=== PATIENT | male | born 1960 | race Caucasian/White ===

== ENCOUNTER 2016-11-26 15:50 | Emergency (ER) | payer OTHER ==
[~2016-11-26] VITALS: Ht 177.8 cm; Wt 72.6 kg
[2016-11-26 15:54] VITALS: BP 111/83
[2016-11-26] MEDS ORDERED: WELLBUTRIN 75 M75 M1 PO (16:06)
[2016-11-26] MEDS ORDERED: NORCO 10-325 T1 EAC1 PO (16:06)
[2016-11-26] MEDS ORDERED: ACCUNEB SO1.25 MG/1 INH (16:06)
[2016-11-26] MEDS ORDERED: FLEXERIL PO (16:30)
[2016-11-26] MEDS ORDERED: MOBIC15 MG PO (16:30)
== END 2016-11-26 16:54 | disposition home or self-care (01) ==
LOC: ER 15:50
DX: M54.31 Sciatica, right side (principal); F17.210 Nicotine dependence, cigarettes, uncomplicated; F10.99 Alcohol use, unspecified with unspecified alcohol-induced disorder; Z85.47 Personal history of malignant neoplasm of testis

== ENCOUNTER 2017-09-02 12:56 | Inpatient (IN) | payer OTHER ==
[~2017-09-02] VITALS: Ht 170.2 cm; Wt 74.8 kg
--- NOTE | ~2017-09-02 | HC ---
[facility] [place] [address] CONSULTATION Name: DAISY CORTES Room #: 454-P [facility]#: [id number] Admission: 09/02/17 Attend Phys: Reno Banegas MD Discharge: 09/05/17 Date of : 64 Report #: [id number] THIS REPORT FOR: //name// CC: MELLO physician/PCP Reno Banegas DATE OF SERVICE: 09/03/2017 HISTORY OF PRESENT ILLNESS: This is a 56-year-old male patient who was evaluated by me because he had a seizure. He gives a history that he had seizures for some time. He estimates it is going on for a few years. He is homeless, history is not very well defined, but he indicates that he gets seizure about couple of times a month. Some of them had been grand mal seizure. He said one time his friend checked his blood sugar and it was 37, but that was not during the seizure. This started spontaneously without any trauma. They come and go. He does not know what brought them on and what makes them better. REVIEW OF SYSTEMS: Indicate that he does drink alcohol, but he says he drinks only about 2 beers a day. He does have some back pain. He does have some psychiatric issue. He does have some GI symptoms. His liver function has been elevated. Rest of the 14-point review of system was mostly noncontributory. PAST MEDICAL HISTORY: Positive for seizure and psychiatric problem. FAMILY HISTORY: Negative for early age for seizures. SOCIAL HISTORY: He does drink alcohol, but he says he drinks about 2 beers and sometime he drinks more than that. He does smoke. PHYSICAL EXAMINATION: Indicate he is alert and responsive. He can follow simple and complex command. His speech, concentration, fund of knowledge and memory is at his baseline. Cranial nerve examination 2-12 looks unremarkable. He has symmetrical strength, sensation, reflexes and tone in all 4 extremities. There is no cerebellar sign. There is no papilledema. He is able to ambulate with reasonable stability. He is a well-developed individual who does not have any dysmorphic features of eyes, ears and face. Hearing and vision looks adequate. He has no thyroid mass. His pulses are palpable and he has no edema, cyanosis or jaundice. Cardiac examination is unremarkable. Respiratory examination showed no respiratory difficulty or rhonchi on either side. PHYSICAL EXAMINATION: VITAL SIGNS: Blood pressure is 156/71, respirations 19, pulse is 61, temperature is 98.4. LABORATORY DATA: Indicate a white count of 5.9. He had a CT scan. We ordered an MRI. [address] [address] CONSULTATION Name: DAISY CORTES Room #: 454-P [facility]#: [id number] Admission: 09/02/17 Attend Phys: Reno Banegas MD Discharge: 09/05/17 Date of : 64 Report #: [id number] IMPRESSION: This patient presents with a history of seizure. I am not sure how accurate his history is of blood sugar of 37. I think neurologically, he does need workup with an MRI and an EEG. He does drink alcohol and his liver functions are abnormal, but he denies drinking more than 2 alcoholic drinks a day, but history is not reliable. I will not put him on any anticonvulsant at the moment, but await the workup. I will defer to you for systemic workup especially with his history of blood sugar of 37, which I am not totally convinced of a history of blood sugar of 37. RECOMMENDATIONS: 1. Seizure precautions. 2. He can drive. 3. I discussed all of it with the patient. 4. Await the workup and then decide about treatment because he says he cannot afford treatment or the medication. Thank you very much for this referral. <ELECTRONICALLY SIGNED> By: Roge Anderson MD 09/06/17 0943 01 0023 Roge Anderson MD /nt
--- NOTE | ~2017-09-02 | EEG ---
[facility] [place] [address] ELECTROENCEPHALOGRAM Name: DAISY CORTES Room #: 454-P [facility] IN ..#: [id number] Admission: 09/02/17 Attend Phys: Reno Banegas MD Discharge: 09/05/17 Date of : 64 Report #: [id number] THIS REPORT FOR: //name// CC: MELLO physician/PCP Reno Banegas DATE OF SERVICE: 09/04/2017 This patient is being evaluated for what he described as seizure. EEG was repeated today because he said he had another seizure. EEG was done by placing the electrodes by standard 10-20 system of electrode placement. Both referential and sequential montages were used for recording. Background activity in this patient's EEG is about 11 Hz and 40 microvolts. This is a symmetrical activity. The patient went to sleep that is associated with bilaterally symmetrical sleep spindle and vertex sharp waves. Throughout the record, no active epileptiform activity was noticed. IMPRESSION: This patient's EEG is within normal limits. No slowing was noticed in the EEG, which was done immediately after the patient had his episode. It would be very unusual for epileptiform seizures to cause no slowing or no abnormality, just after the seizures, although possible. Thank you very much for this referral. <ELECTRONICALLY SIGNED> By: Roge Anderson MD 09/06/17 0943 1458 1843 MD [place]
--- NOTE | ~2017-09-02 | EEG ---
[facility] [address] [address] ELECTROENCEPHALOGRAM Name: SEBASTIANDAISY Darlene Room #: 454-P [facility] IN .R.#: [id number] Admission: 09/02/17 Attend Phys: Reno Banegas MD Discharge: 09/05/17 Date of : 64 Report #: [id number] THIS REPORT FOR: //name// CC: MELLO physician/PCP Reno Banegas DATE OF SERVICE: 09/03/2017 This patient is being evaluated for the possibility of seizure. EEG was done by placing the electrodes by standard 10-20 system of electrode placement. Both referential and sequential montages were used for recording. Background activity in this patient's EEG is about 11 Hz and 40 microvolts. It is a symmetrical activity. The patient became drowsy that is associated with bilateral slowing and vertex sharp waves. Photic stimulation is unremarkable. Throughout the record, no active epileptiform activity was noticed. IMPRESSION: This patient's EEG is within normal limit. Thank you very much for this referral. <ELECTRONICALLY SIGNED> By: Roge Anderson MD 09/06/17 0943 0830 1623 Roge Anderson MD /nt
--- NOTE | ~2017-09-02 | EKG ---
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: [facility] : 1960 Requested By: Jolanta Romano Order Number: [id number] MD: Juan Ramon Rawls Measurements Intervals [place] Rate: 77 P: 51 CA: 161 QRS: 64 QRSD: 83 T: 61 QT: 371 QTc: 420 Interpretive Statements Sinus rhythm Normal tracing No previous ECG available for comparison Electronically Signed On 09-02-2017 17:21:33 CDT by Juan Ramon Rawls [email or web address] <ELECTRONICALLY SIGNED> By: Juan Ramon Rawls MD, [facility] 09/02/17 1721 1324 1324 Juan Ramon Rawls MD, FAC /EPI
[~2017-09-02 12:56] MED LIST: ACCUNEB SO1.25 MG/1 INH; FLEXERIL PO; MOBIC15 MG PO; NORCO 10-325 T1 EAC1 PO; WELLBUTRIN 75 M75 M1 PO
[2017-09-02 12:57] VITALS: BP 145/73
[2017-09-02 13:26] LABS: BASOPHILS 1.1 % (0.0-2.0); EOSINOPHILS 7.7 % (0.0-3.0); HEMOGLOBIN 14.3 gm/dL (14.0-18.0); LYMPHOCYTES 31.7 % (24.0-44.0); MCH 32.9 pg (26.0-34.0); MCHC 35.7 g/dL (28.0-37.0); MCV 92.2 fL (80.0-100.0); MONOCYTES 7.9 % (1.0-8.0); PLATELET COUNT 268 thou/uL (150-400); POLYS 51.6 % (36.0-66.0); RBC 4.34 mil/uL (4.50-6.00); RDW 13.6 % (10.5-14.5); WBC 5.9 thou/uL (4.0-11.0)
[2017-09-02 13:36] LABS: ANION GAP 9 mmol/L (7-16); BUN 16 mg/dL (7-18); CALCIUM 8.6 mg/dL (8.5-10.1); CHLORIDE 108 mmol/L (98-107); CO2 26 mmol/L (21-32); CREATININE 0.9 mg/dL (0.7-1.3); GLUCOSE 94 mg/dL (74-106); POTASSIUM 3.9 mmol/L (3.5-5.1); SODIUM 143 mmol/L (136-145)
[2017-09-02 13:44] LABS: ALBUMIN 3.4 g/dL (3.4-5.0); SGOT 55 U/L (15-37); SGPT 73 U/L (30-65); TOTAL BILIRUBIN 0.2 mg/dL (<0.1-1.0); TOTAL PROTEIN 6.9 g/dL (6.4-8.2); TROPONIN-I <0.06 ng/mL (<0.06)
[2017-09-02 14:23] LABS: URINE BILIRUBIN NEGATIVE (Negative); URINE BLOOD NEGATIVE (Negative); URINE CLARITY CLEAR; URINE COLOR YELLOW; URINE GLUCOSE-RANDOM* NEGATIVE (Negative); URINE KETONES NEGATIVE (Negative); URINE LEUKOCYTES-REFLEX NEGATIVE (Negative); URINE NITRITE-REFLEX NEGATIVE (Negative); URINE PROTEIN (DIPSTICK) NEGATIVE (Negative); URINE SPECIFIC GRAVITY >= 1.030 (1.005-1.035); URINE UROBILINOGEN 0.2 E.U./dl (0.2-1.0)
[2017-09-02] MEDS ORDERED: PERCOCET 10-321 EACH PO (14:33)
[2017-09-02 16:03] VITALS: BP 132/76
[2017-09-02 16:26] LABS: CHOLESTEROL 170 mg/dL (<200); HDL CHOLESTEROL 77 mg/dL (>40); LDL CHOLESTEROL 67 mg/dL (<100); TC:HDL 2.2 Ratio (Not establshd); TRIGLYCERIDE 130 mg/dL (<150); VLDL 26 mg/dL (<40)
[2017-09-02 16:27] LABS: SERUM ASSESSMENT Clear
[2017-09-02 16:50] VITALS: BP 156/98
[2017-09-02 16:52] LABS: FOLIC ACID 6.3 ng/mL (8.6-58.9); TSH 0.942 uIU/mL (0.358-3.740)
[2017-09-02 17:00] VITALS: BP 147/83
[2017-09-02 20:04] VITALS: BP 156/98
[2017-09-03 00:14] VITALS: BP 161/95
[2017-09-03 04:24] VITALS: BP 161/87
[2017-09-03 07:35] VITALS: BP 156/76
[2017-09-03 16:30] VITALS: BP 156/71
[2017-09-03 22:17] VITALS: BP 146/93
[2017-09-04 04:34] LABS: HEMATOCRIT 41.9 % (42.0-52.0); HEMOGLOBIN 14.3 gm/dL (14.0-18.0); MCH 32.4 pg (26.0-34.0); MCHC 34.1 g/dL (28.0-37.0); MCV 95.1 fL (80.0-100.0); RBC 4.4 mil/uL (4.50-6.00); RDW 14.1 % (10.5-14.5); WBC 5.6 thou/uL (4.0-11.0)
[2017-09-04 04:47] LABS: CALCIUM 8.4 mg/dL (8.5-10.1); CREATININE 0.9 mg/dL (0.7-1.3)
[2017-09-04 08:43] VITALS: BP 143/99
[2017-09-04 16:15] VITALS: BP 141/97
[2017-09-04 20:34] VITALS: BP 149/87
[2017-09-05 04:00] VITALS: BP 149/81
[2017-09-05 07:55] VITALS: BP 147/91
[2017-09-05 14:34] VITALS: BP 147/91
== END 2017-09-05 15:16 | disposition home or self-care (01) | DRG 101 ==
LOC: ER 12:56 → 4W 15:27 → EROBS 15:27 → 4W 17:23
PROVIDERS: Hospitalist; Nurse Practitioner; Nurse Practitioner Family
DX: R56.9 Unspecified convulsions (principal); R55 Syncope and collapse; F43.10 Post-traumatic stress disorder, unspecified; F17.210 Nicotine dependence, cigarettes, uncomplicated; Z66 Do not resuscitate; R79.89 Other specified abnormal findings of blood chemistry; G89.29 Other chronic pain; M54.9 Dorsalgia, unspecified; F10.10 Alcohol abuse, uncomplicated; Z71.6 Tobacco abuse counseling; Z85.47 Personal history of malignant neoplasm of testis; Z79.899 Other long term (current) drug therapy
CPT/HCPCS: 10045

== ENCOUNTER → 2018-08-22 | Outpatient (CLI) | payer OTHER ==
[~2018-08-22] MED LIST changes: +PERCOCET 10-321 EACH PO
--- NOTE | 2018-08-23 14:11 | EEG ---
[facility] [address] [place] [address] ELECTROENCEPHALOGRAM Name: DAISY CORTES Room #: [facility]#: [id number] ������������������ Admission: 08/22/18 ������������������ Attend Phys: Roge Jaffe MD Discharge: ������������������ Date of : 64 Report #: [id number] ����������������������������������������������������������������� [id number] THIS REPORT FOR: //name// CC: AYAZ Jaffe Physician staff DATE OF SERVICE: 08/22/2018 This patient is being evaluated for dizziness. EEG was done by placing the electrode by standard 10-20 system of electrode placement. Both referential and sequential montages were used for recording. The background activity in this patient's EEG is about 11 Hz and 40 microvolt. It is a very well formed background activity. Background activity is symmetrical. Moderate amount of muscle artifact is present. Most of the EEG is obtained when the patient is awake. Small portion of this EEG is obtained when the patient is drowsy and that is associated with bilateral slowing and vertex sharp waves. Throughout the record, no active epileptiform activity was noticed. IMPRESSION: This patient's EEG is within normal limits. EEG can be normal in a patient with seizure disorder. Thank you very much for this referral. ���������������������������������������� <ELECTRONICALLY SIGNED> ���������������������������������������� By: Roge Jaffe MD ��������������������������������������������� 08/23/18 1411 1601 1612 Roge Jaffe MD /nt
== END ==
LOC: CV 13:05
DX: R42 Dizziness and giddiness (principal)